=== PATIENT | male | born 1995 | race Caucasian/White ===

== ENCOUNTER → 2020-10-09 12:07 | Outpatient (CLI) | payer BC, SELFPAY ==
--- NOTE | ~2020-10-09 | XR_ITS ---
EXAMINATION: XR cervical spine 4-5V EXAM DATE: 10/09/2020 12:28 INDICATION: LT side neck pain radiates down into back/lt shoulder. Pain after reaching for a door whi le towel drying his hair 3x days ago. TECHNIQUE: Cervical spine frontal, lateral, lateral swimmers, and open-mouth odontoid projections. Additional bilateral oblique projections of the cervical spine. FINDINGS: There is mild reversal of the normal cervical lordosis which may be positional or spasm. Th ere is no evidence of acute cervical fracture. The odontoid process is intact. Pre-dens space is no rmal. Prevertebral soft tissue is normal. There are no soft tissue abnormalities identified. Verte bral body and disc heights are well-maintained. The vertebral bodies are aligned. Cervical neural foramen are widely patent on the oblique images. Mild cervical thoracic levocurvature. IMPRESSION: 1. Reversal of normal cervical lordosis, could indicate muscle spasm. 2. Mild cervicothoracic levocurvature. 3. Otherwise unremarkable exam. Reviewed, dictated and finalized at location B.
== END ==
PROVIDERS: PCP Emergency Medicine; Visit Provider Emergency Medicine
DX: M62.830 Muscle spasm of back (principal)
CPT/HCPCS: 72050